=== PATIENT | male | born 1975 | race American Indian/Alaskan Native ===

== ENCOUNTER 2016-09-05 16:09 | Emergency (ER) | payer SELFPAY ==
--- NOTE | 2016-09-05 16:31 | Emergency Department Report ---
Chief Complaint: Chest Pain Stated Complaint: CHEST PAIN Time Seen by Provider: 09/05/16 16:28 - HPI History of Present Illness: PT states he went to crab picker his daughter from friends house and he started to "shut down" PT states this has happened before and he just needed to calm down. PT states he had lower abd pain and he drank more water. PT states his last attack was Sunday - ROS Review of Systems: + abd pain + chest pain + fatigue - Exam Vital Signs: Vital Signs 09/05/16 16:20 Temperature 97.8 F Pulse Rate 82 Respiratory 22 Rate Blood Pressure 126/85 O2 Sat by Pulse 100 Oximetry Physical Exam: PT looks well, non toxic pt mildly anxious in triage No acute resp distress MSE screening note: Focused history and physical exam performed. Due to findings the following was ordered: labs ekg, xr ED Disposition for MSE Condition: Stable
[2016-09-05 17:13] LABS: Basophils % (Auto) 0.9 % (0.0-1.8); Hematocrit 45.5 % (35.5-45.6); Mean Corpuscular HGB Conc 33 % (32-34); Mean Corpuscular Hemoglobin 29 pg (28-32); Mean Corpuscular Volume 89 fl (84-94); Platelet Count 266 K/mm3 (140-440); Red Cell Distribution Width 13.4 % (13.2-15.2); White Blood Count 4.9 K/mm3 (4.5-11.0)
[2016-09-05 17:14] LABS: Alanine Aminotransferase 26 units/L (7-56); Albumin 4.4 g/dL (3.9-5); Albumin/Globulin Ratio 1.4 %; Alkaline Phosphatase 44 units/L (35-129); Anion Gap 27 mmol/L; BUN/Creatinine Ratio 9.09; Blood Urea Nitrogen 10 mg/dL (9-20); Calcium 9.1 mg/dL (8.4-10.2); Carbon Dioxide 17 mmol/L (22-30); Chloride 91.1 mmol/L (98-107); Glucose 137 mg/dL (75-100); Lipase 48 units/L (13-60); Potassium 3.4 mmol/L (3.6-5.0); Sodium 132 mmol/L (137-145); Total Protein 7.6 g/dL (6.3-8.2)
[2016-09-05 17:19] LABS: Urine Drugs of Abuse Note Disclamer
[2016-09-05 17:28] LABS: Bilirubin,Urine NEG (Negative); Blood,Urine NEG (Negative); Ketones,Urine NEG (Negative); Leukocyte Esterase,Urine NEG (Negative); Nitrite,Urine NEG (Negative); Protein,Urine <15 mg/dL mg/dL (Negative); RBC,Urine < 1.0 /HPF (0.0-6.0); Urobilinogen,Urine < 2.0 mg/dL (<2.0); WBC,Urine < 1.0 /HPF (0.0-6.0)
[2016-09-05] MEDS ORDERED: NACL 0.9% 1000 ML 1,000 ML IV ONE (23:02)
[2016-09-05] MEDS ORDERED: K-DUR PO ONE (23:02)
--- NOTE | 2016-09-05 23:37 | Emergency Department Report ---
HPI - General Chief Complaint: Chest Pain Time Seen by Provider: 09/05/16 16:28 - HPI HPI: pT states he went to brain picker his daughter from friends house and he started to "shut down" PT states this has happened before and he just needed to calm down. PT states he had lower abd pain and he drank more water. PT states his last attack was Sunday. He isn't also complaining of epigastric discomfort mostly at night radiating to his throat, burning in sensation, without vomiting. ED Past Medical Hx - Past Medical History Previous Medical History?: Yes Hx Hypertension: No Hx CVA: No Hx Heart Attack/AMI: No Hx Congestive Heart Failure: No Hx Diabetes: No Hx Deep Vein Thrombosis: No Hx Pulmonary Embolism: No Hx GERD: Yes Hx Liver Disease: No Hx Renal Disease: No Hx Sickle Cell Disease: No Hx Arthritis: No Hx Headaches / Migraines: No Hx Seizures: No Hx Kidney Stones: No Hx Psychiatric Treatment: No Hx Asthma: No Hx COPD: No Hx Tuberculosis: No Hx Dementia: No Hx HIV: No Additional medical history: acid reflux - Surgical History Past Surgical History?: No Hx Coronary Stent: No Hx Open Heart Surgery: No Hx Pacemaker: No Hx Cholecystectomy: No Hx Appendectomy: No Hx Breast Surgery: No - Social History Smoking Status: Never Smoker Substance Use Type: Alcohol - Medications Home Medications: Home Medications Medication Instructions Recorded Confirmed Last Taken Type metroNIDAZOLE [Flagyl] 500 mg PO BID 10 Days 10/02/13 Unknown Rx Omeprazole 40 mg PO DAILY #30 capsule. 09/05/16 Unknown Rx ED Review of Systems ROS: Stated complaint: CHEST PAIN Other details as noted in HPI Comment: All other systems reviewed and negative Neurological: other Psychiatric: anxiety Physical Exam - Physical Exam Vital Signs: Vital Signs 09/05/16 09/05/16 16:20 21:26 Temperature 97.8 F Pulse Rate 82 81 Respiratory 22 18 Rate Blood Pressure 126/85 120/78 O2 Sat by Pulse 100 100 Oximetry Physical Exam: Vital signs reviewed Gen. alert and oriented 3 in no distress Head atraumatic normocephalic Eyes PERR LA EOMI Chest regular rate and rhythm normal S1-S2 lungs clear bilaterally Abdomen soft nondistended Back no point tenderness paravertebral tenderness Neuro no focal deficit. Psych normal mood. ED Course Vital Signs 09/05/16 09/05/16 16:20 21:26 Temperature 97.8 F Pulse Rate 82 81 Respiratory 22 18 Rate Blood Pressure 126/85 120/78 O2 Sat by Pulse 100 100 Oximetry ED Medical Decision Making - Lab Data Result diagrams: 09/05/16 16:39 09/05/16 16:39 Critical care attestation.: If time is entered above; I have spent that time in minutes in the direct care of this critically ill patient, excluding procedure time. ED Disposition Clinical Impression: Anxiety in acute stress reaction, Gastritis Disposition: DC- TO HOME OR SELFCARE Is pt being admited?: No Does the pt Need Aspirin: No Condition: Stable Instructions: Gastritis (ED), Generalized Anxiety Disorder (ED) Prescriptions: Omeprazole 40 mg PO DAILY #30 capsule. Referrals: PRIMARY CARE, [Primary Care Provider] - 3-5 Days
[2016-09-05 23:52] VITALS: BP 124/85
--- NOTE | 2016-09-06 07:15 | XRay Report ---
ROUTINE CHEST, TWO VIEWS: HISTORY: chest pain. The trachea, heart, mediastinal contour, lung woods and bony thorax are unremarkable. IMPRESSION: Unremarkable chest x-ray.
== END 2016-09-06 00:16 | disposition home or self-care (01) ==
LOC: ED 16:09
DX: F41.1 Generalized anxiety disorder (principal); F43.0 Acute stress reaction; K29.70 Gastritis, unspecified, without bleeding; K21.9 Gastro-esophageal reflux disease without esophagitis
CPT/HCPCS: 36415; 71020; 80053; 80307; 81001; 83690; 84484; 85025; 93005; 93010; 96360; 99284; J7030

== ENCOUNTER 2017-04-10 20:26 | Emergency (ER) | payer SELFPAY ==
[2017-04-11] MEDS ORDERED: XYLOCAINE 1% MPF 5 mL INFILTRATI ONE (01:24)
[2017-04-11] MEDS ORDERED: ROCEPHIN IM ONE (01:24)
[2017-04-11] MEDS ORDERED: ZITHROMAX PO ONE (01:24)
--- NOTE | 2017-04-11 01:29 | Emergency Department Report ---
ED Male HPI - General Chief complaint: Abdominal Pain Stated complaint: ANXIETY Time Seen by Provider: 04/11/17 01:23 Source: patient Mode of arrival: Ambulatory Limitations: No Limitations - History of Present Illness Initial comments: 41-year-old -[place] male comes in today for complaint of heartburn which he was on omeprazole but failed to relax it was [id number]. He also complains of penile discharge that is noticed Sunday. He does report sexually active with women unprotected 3 partners in the last year. He does admit to dysuria denies any fever chills no nausea no vomiting. He also complains of episodes of burning sensation to the throat shortness of breath with his acid. Patient did not realize he can get his omeprazole over-the- counter. MD Complaint: penile discharge Quality: burning Improves with: none Worsens with: urination denies other symptoms - Related Data Sexually active: Yes (women) Previous Rx's Medication Instructions Recorded Last Taken Type metroNIDAZOLE [Flagyl] 500 mg PO BID 10 Days tablet 10/02/13 Unknown Rx Doxycycline [Vibramycin CAP] 100 mg PO Q12HR 10 Days #20 capsule 04/11/17 Unknown Rx Omeprazole 40 mg PO DAILY #30 capsule. 04/11/17 Unknown Rx Allergies Allergy/AdvReac Type Severity Reaction Status Date / Time No Known Allergies Allergy Verified 10/02/13 12:28 ED Review of Systems ROS: Stated complaint: ANXIETY Other details as noted in HPI Constitutional: denies: chills, fever ED Past Medical Hx - Past Medical History Hx Hypertension: No Hx CVA: No Hx Heart Attack/AMI: No Hx Congestive Heart Failure: No Hx Diabetes: No Hx Deep Vein Thrombosis: No Hx Pulmonary Embolism: No Hx GERD: Yes Hx Liver Disease: No Hx Renal Disease: No Hx Sickle Cell Disease: No Hx Arthritis: No Hx Headaches / Migraines: No Hx Seizures: No Hx Kidney Stones: No Hx Psychiatric Treatment: No Hx Asthma: No Hx COPD: No Hx Tuberculosis: No Hx Dementia: No Hx HIV: No Additional medical history: acid reflux - Surgical History Hx Coronary Stent: No Hx Open Heart Surgery: No Hx Pacemaker: No Hx Cholecystectomy: No Hx Appendectomy: No Hx Breast Surgery: No - Social History Smoking Status: Light Tobacco Smoker Substance Use Type: Alcohol - Medications Home Medications: Home Medications Medication Instructions Recorded Confirmed Last Taken Type metroNIDAZOLE [Flagyl] 500 mg PO BID 10 Days tablet 10/02/13 Unknown Rx Doxycycline [Vibramycin CAP] 100 mg PO Q12HR 10 Days #20 capsule 04/11/17 Unknown Rx Omeprazole 40 mg PO DAILY #30 capsule. 04/11/17 Unknown Rx ED Physical Exam - General Limitations: No Limitations General appearance: alert, in no apparent distress - Head Head exam: Present: atraumatic, normocephalic - Eye Eye exam: Present: normal appearance - ENT ENT exam: Present: mucous membranes moist - Neck Neck exam: Present: normal inspection - Respiratory Respiratory exam: Present: normal lung sounds bilaterally. Absent: respiratory distress - Cardiovascular Cardiovascular Exam: Present: regular rate, normal rhythm. Absent: systolic murmur, diastolic murmur, rubs, gallop - GI/Abdominal GI/Abdominal exam: Present: soft, normal bowel sounds - exam: Present: urethral discharge, circumcision - Extremities Exam Extremities exam: Present: normal inspection - Back Exam Back exam: Present: normal inspection - Neurological Exam Neurological exam: Present: alert, oriented X3 - Psychiatric Psychiatric exam: Present: normal affect, normal mood - Skin Skin exam: Present: warm, dry, intact, normal color. Absent: rash ED Course Vital Signs 04/10/17 21:03 Temperature 98.4 F Pulse Rate 68 Respiratory 18 Rate Blood Pressure 126/72 O2 Sat by Pulse 97 Oximetry ED Medical Decision Making - Medical Decision Making Patient has been evaluated by this provider fast track. I discussed with patient that I will give him a prescription for omeprazole 40 mg daily. Also discussed the patient we'll send a chlamydia and gonorrhea. We'll check a urinalysis. We'll treat patient empirically with Rocephin 250 mg IM A azithromycin 1 g and a prescription for doxycycline to take twice a day for 10 days. I also discussed the patient that he needs to inform his partner that he' s been tested and treated for STDs. Discussed the patient did not have intercourse with untreated partners. Please have intercourse in the next 2 weeks as medication needs to be effective. Critical care attestation.: If time is entered above; I have spent that time in minutes in the direct care of this critically ill patient, excluding procedure time. ED Disposition Clinical Impression: Abnormal penile discharge, STD (male) GERD (gastroesophageal reflux disease) Qualifiers: Esophagitis presence: without esophagitis Qualified Code(s): K21.9 - Gastro- esophageal reflux disease without esophagitis Disposition: DC-01 TO HOME OR SELFCARE Is pt being admited?: No Does the pt Need Aspirin: No Condition: Stable Instructions: Sexually Transmitted Diseases (ED), Safe Sex (ED), Gastroesophageal Reflux Disease (ED) Additional Instructions: Please inform your sexual partner that she been treated. Please refrain from intercourse for the next 2 weeks as she need to complete the medication. Please fill your prescription for your omeprazole for treatment of GERD please follow-up with the primary care provider for chronic disease management. Prescriptions: Doxycycline [Vibramycin CAP] 100 mg PO Q12HR 10 Days #20 capsule Omeprazole 40 mg PO DAILY #30 capsule.dr Referrals: SANDRA ISSA MD [Primary Care Provider] - 3-5 Days [facility] [Provider Group] - 3-5 Days [facility] [Outside] - 3-5 Days [facility] [Outside] - 3-5 Days Forms: Work/School Release Form(ED)
[2017-04-11 01:49] LABS: Bilirubin,Urine NEG (Negative); Blood,Urine SM (Negative); Color,Urine Yellow (Yellow); Nitrite,Urine NEG (Negative); Protein,Urine <15 mg/dL mg/dL (Negative)
[2017-04-11 02:06] LABS: WBC,Urine < 1.0 /HPF (0.0-6.0)
[2017-04-11 06:51] VITALS: BP 146/87
== END 2017-04-11 02:20 | disposition home or self-care (01) ==
LOC: ED 20:26
DX: A64 Unspecified sexually transmitted disease (principal); K21.9 Gastro-esophageal reflux disease without esophagitis; F17.200 Nicotine dependence, unspecified, uncomplicated
CPT/HCPCS: 81001; 87591; 96372; 99283; J0696

== ENCOUNTER 2017-04-14 16:32 | Emergency (ER) | payer SELFPAY ==
[2017-04-14 16:41] VITALS: BP 135/90
== END 2017-04-14 16:38 | disposition left against medical advice (07) ==
LOC: ED 16:32
DX: R20.0 Anesthesia of skin (principal); Z53.21 Procedure and treatment not carried out due to patient leaving prior to being seen by health care provider

== ENCOUNTER 2017-12-05 11:25 | Emergency (ER) | payer OTHER ==
[2017-12-05 12:00] VITALS: BP 123/81
--- NOTE | 2017-12-05 14:18 | Emergency Department Report ---
ED Eye Problem HPI - General Chief complaint: Eye Problems Stated complaint: EYE PAIN Time Seen by Provider: 12/05/17 12:43 Source: patient Mode of arrival: Ambulatory Limitations: No Limitations - History of Present Illness MD chief complaint: eye pain, eye injury -: Sudden Onset Description: sudden Location: left eye Place: home If Injury: direct trauma Eye Symptoms: redness, pain, photophobia Severity: moderate Severity scale (0 -10): 5 If Pain, Quality: throbbing Consistency: constant Context: trauma Associated Symptoms: none Treatments Prior to Arrival: none - Related Data Previous Rx's Medication Instructions Recorded Last Taken Type metroNIDAZOLE [Flagyl] 500 mg PO BID 10 Days tablet 10/02/13 Unknown Rx Doxycycline [Vibramycin CAP] 100 mg PO Q12HR 10 Days #20 capsule 04/11/17 Unknown Rx Omeprazole 40 mg PO DAILY #30 capsule.dr 04/11/17 Unknown Rx Cyclopentolate HCl [Cyclogyl 1%] 1 drop OP BID #1 drops 12/05/17 Unknown Rx traMADol [Ultram] 50 mg PO Q6HR PRN #20 tablet 12/05/17 Unknown Rx Allergies Allergy/AdvReac Type Severity Reaction Status Date / Time No Known Allergies Allergy Verified 04/14/17 16:37 ED Review of Systems ROS: Stated complaint: EYE PAIN Other details as noted in HPI Comment: All other systems reviewed and negative Constitutional: denies: chills, fever Eyes: denies: eye pain, eye discharge, vision change ENT: denies: ear pain, throat pain Respiratory: denies: cough, shortness of breath, wheezing Cardiovascular: denies: chest pain, palpitations Endocrine: no symptoms reported Gastrointestinal: denies: abdominal pain, nausea, diarrhea Genitourinary: denies: urgency, dysuria Musculoskeletal: denies: back pain, joint swelling, arthralgia Skin: denies: rash, lesions Neurological: denies: headache, weakness, paresthesias Psychiatric: denies: anxiety, depression Hematological/Lymphatic: denies: easy bleeding, easy bruising ED Past Medical Hx - Past Medical History Hx Hypertension: No Hx CVA: No Hx Heart Attack/AMI: No Hx Congestive Heart Failure: No Hx Diabetes: No Hx Deep Vein Thrombosis: No Hx Pulmonary Embolism: No Hx GERD: Yes Hx Liver Disease: No Hx Renal Disease: No Hx Sickle Cell Disease: No Hx Arthritis: No Hx Headaches / Migraines: No Hx Seizures: No Hx Kidney Stones: No Hx Psychiatric Treatment: No Hx Asthma: No Hx COPD: No Hx Tuberculosis: No Hx Dementia: No Hx HIV: No Additional medical history: acid reflux - Surgical History Hx Coronary Stent: No Hx Open Heart Surgery: No Hx Pacemaker: No Hx Cholecystectomy: No Hx Appendectomy: No Hx Breast Surgery: No - Social History Smoking Status: Never Smoker Substance Use Type: None - Medications Home Medications: Home Medications Medication Instructions Recorded Confirmed Last Taken Type metroNIDAZOLE [Flagyl] 500 mg PO BID 10 Days tablet 10/02/13 Unknown Rx Doxycycline [Vibramycin CAP] 100 mg PO Q12HR 10 Days #20 capsule 04/11/17 Unknown Rx Omeprazole 40 mg PO DAILY #30 capsule. 04/11/17 Unknown Rx Cyclopentolate HCl [Cyclogyl 1%] 1 drop OP BID #1 drops 12/05/17 Unknown Rx traMADol [Ultram] 50 mg PO Q6HR PRN #20 tablet 12/05/17 Unknown Rx ED Physical Exam - General Limitations: No Limitations General appearance: alert, in no apparent distress - Head Head exam: Present: atraumatic, normocephalic - Eye Eye exam: Present: normal appearance, PERRL, EOMI, other (20/100 Bilaterally, no hyphema) - ENT ENT exam: Present: mucous membranes moist - Neck Neck exam: Present: normal inspection - Respiratory Respiratory exam: Present: normal lung sounds bilaterally. Absent: respiratory distress, wheezes, rales - Cardiovascular Cardiovascular Exam: Present: regular rate, normal rhythm. Absent: systolic murmur, diastolic murmur, rubs, gallop - GI/Abdominal GI/Abdominal exam: Present: soft, normal bowel sounds - Rectal Rectal exam: Present: deferred - Extremities Exam Extremities exam: Present: normal inspection - Back Exam Back exam: Present: normal inspection - Neurological Exam Neurological exam: Present: alert, oriented X3, CN II-XII intact. Absent: motor sensory deficit - Psychiatric Psychiatric exam: Present: normal affect, normal mood - Skin Skin exam: Present: warm, dry, intact, normal color. Absent: rash ED Course Vital Signs 12/05/17 11:55 Temperature 98.7 F Pulse Rate 90 Respiratory 18 Rate Blood Pressure 123/81 O2 Sat by Pulse 99 Oximetry ED Medical Decision Making - Medical Decision Making discussed results with patient Critical care attestation.: If time is entered above; I have spent that time in minutes in the direct care of this critically ill patient, excluding procedure time. ED Disposition Clinical Impression: Eye trauma, Traumatic iritis Disposition: TO HOME OR SELFCARE Is pt being admited?: No Does the pt Need Aspirin: No Condition: Stable Instructions: Eye Pain (ED), Iritis (ED) Additional Instructions: return if worse Prescriptions: Cyclopentolate HCl [Cyclogyl 1%] 1 drop OP BID #1 drops traMADol [Ultram] 50 mg PO Q6HR PRN #20 tablet PRN Reason: Pain Referrals: KAMRYN CHAVES MD [Staff Physician] - 3-5 Days Time of Disposition: 14:18
== END 2017-12-05 14:28 | disposition home or self-care (01) ==
LOC: ED 11:25
DX: S05.92XA Unspecified injury of left eye and orbit, initial encounter (principal); H20.9 Unspecified iridocyclitis; X58.XXXA Exposure to other specified factors, initial encounter; Y93.89 Activity, other specified; Y99.8 Other external cause status; Y92.89 Other specified places as the place of occurrence of the external cause
CPT/HCPCS: 99282

== ENCOUNTER 2018-04-15 10:08 | Emergency (ER) | payer SELFPAY ==
[2018-04-15 10:37] VITALS: BP 132/94
== END 2018-04-15 12:35 | disposition left against medical advice (07) ==
LOC: ED 10:08
DX: R07.89 Other chest pain (principal); Z53.21 Procedure and treatment not carried out due to patient leaving prior to being seen by health care provider
CPT/HCPCS: 93005; 93010

== ENCOUNTER 2018-10-31 14:26 | Emergency (ER) | payer SELFPAY | END 2018-10-31 18:00 | LOC: ED 14:26 | DX: R07.89 Other chest pain (principal); Z53.21 Procedure and treatment not carried out due to patient leaving prior to being seen by health care provider | CPT/HCPCS: 93005; 93010 ==